=== PATIENT | female | born 1940 | race Caucasian/White ===

== ENCOUNTER 2017-02-07 03:12 | Emergency (ER) | payer MEDICAID, MEDICARE, OTHER, SELFPAY ==
[~2017-02-07] VITALS: Ht 162.6 cm; Wt 86.0 kg
[2017-02-07 03:15] VITALS: BP 142/112
[2017-02-07] MEDS ORDERED: PROPOFOL 10 MG/ML, 20ML IVPush ONE (03:30)
[2017-02-07] MEDS ORDERED: SODIUM CHLORIDE FLUSH 10ML SYR IVF ONE (03:30)
[2017-02-07 03:43] LABS: HEMATOCRIT 49.2 % (34.6-47.8); HEMOGLOBIN 16.5 g/dL (11.7-16.4); WHITE BLOOD COUNT 9.7 x10^3/uL (3.4-10)
[2017-02-07 03:51] LABS: ASPARTATE AMINO TRANSFERASE 18 U/L (15-37); BLOOD UREA NITROGEN 16 mg/dL (7-18)
[2017-02-07 04:02] LABS: IS PT STATUS REG ER OR PRE ER? YES
== END 2017-02-07 05:18 | disposition home or self-care (01) ==
LOC: ED 03:36
DX: I48.91 Unspecified atrial fibrillation (principal); R93.8 Abnormal findings on diagnostic imaging of other specified body structures
CPT/HCPCS: 36415; 71010; 80053; 83735; 84436; 84443; 84484; 85025; 85610; 85730; 92960; 93005